=== PATIENT | female | born 1990 ===

== ENCOUNTER 2016-09-09 11:41 | Inpatient (IN) | payer OTHER ==
[2016-09-09] MEDS ORDERED: SODIUM CHLORIDE 0.9% FLUSH 10 ML ONE (11:56)
[2016-09-09] MEDS ORDERED: IV START KIT ONE (11:56)
[2016-09-09] MEDS ORDERED: OXYTOCIN IN LR 500 ML IV ONE ×2 (11:57→12:39)
[2016-09-09] MEDS ORDERED: LACTATED RINGERS 1,000 ML IV SCH (12:00)
[2016-09-09] MEDS ORDERED: OXYTOCIN 10 UNITS/ML VIAL ONE (12:38)
[2016-09-09] MEDS ORDERED: PUMP TUBING ONE (12:38)
[2016-09-09] MEDS ORDERED: MINERAL OIL 25 ML BOT ONE (12:38)
[2016-09-09] MEDS ORDERED: LIDOCAINE 1% (PRES FREE) 30 ML VIAL ONE (12:38)
[2016-09-09] MEDS ORDERED: LIDOCAINE Viscous 2% 15 ML UDCUP ONE (12:38)
[2016-09-09 12:42] LABS: HEMATOCRIT 37.4 % (37.0-47.0); HEMOGLOBIN 12.8 gm/l (12.0-16.0); MEAN CELL VOLUME 93.3 fl (81.0-99.0); MEAN CORPUSCULAR HEMOGLOBIN 31.9 pg (27.0-31.0); MEAN CORPUSCULAR HGB CONC 34.2 g/dl (33.0-37.0); RED CELL DISTRIBUTION WIDTH 13.5 % (11.5-14.5)
[2016-09-09] MEDS: OXYTOCIN IN LR 500 ML IV PRN ×4 (12:49→18:13)
[2016-09-09 13:07] VITALS: BMI 25.6
--- NOTE | 2016-09-09 14:24 | PCMAN ---
OB Admission Note - History : 2 Term: 1 : 0 Abortions (S&E): 0 Livin EDC:: 09/01/16 Gestational Age (weeks): 41 Days (#/7): 1 Admit Cervical Dilation:: 3 Admit Cervical Effacement (%):: 70 Admit Station:: -2 Admit Presentaton:: vertex Membrane Status: Intact Contractions: Yes Contraction Frequency:: occasional, none felt by pt. Heart Rate:: 125 Status:: Category 1, moderate variability, accels present, no decels Summary of Course:: Uncomplicated , GBS neg. Dated by LMP c/w 15 wk US. PMHx: h/o membranous VSD repaired at age 10 (cleared by Cards), Chlamydia, Eczema PSHx: VSD repair Meds: PNV SocHx: Denies tob, etoh or illicit drugs OBHx: 2014 40 wks, 7 lb 11 oz Flu vaccine 03/2016 Tdap 06/18/2016 - Labs Blood Type: O (+) positive Hct/Hgb:: 39.7/13.1 Rubella Status: Immune GBS Status: Negative Abnormal Labs: None Other Labs:: Ab neg HIV NR RPR NR HBSAg neg Quad normal 1hr 129 - Review of Systems Denies CP, SOB or PASCUAL. No RUQ, visual changes. No ctx, LOF or VB. Good movement. - Physical Exam General: Afebrile, No Acute Distress Psych/Mental Status: Mood/Affect Appropriate Neurological: Grossly Intact, Normal Speech Lungs: Clear to Auscultation Bilaterally, Normal Air Movement Cardiovascular: Regular Rate and Rhythm, Normal S1, Normal S2 Extremities: Full ROM Skin: Normal Color, Warm, Dry - Problems (1) Post-dates Status: Acute Code: O48.0Assessment/Plan: Admitted for postdates induction of labor SVE /-2 Pitocin started Will plan on AROM once in a regular ctx pattern GBS neg Desires natural unmedicated labor
--- NOTE | 2016-09-09 19:35 | PDOC36 ---
Provider Note Subject: MD Interval Note Note: Patient feeling more pressure. AROM was clear. Pit at 6. SVE 7/100/0 per RN. Afebrile, VSS. FHT: 130, moderate variability, accels present, no decels TOCO: Q2-3 mins A/P: 26 yo at 41 1/7 wks, IOL for post dates - expectant management
[2016-09-09] MEDS ORDERED: BENZOCAINE/MENTHOL 60 APPLIC/BOT TP PRN (20:06)
[2016-09-09] MEDS ORDERED: DOCUSATE SODIUM 100 MG CAPSULE PO PRN (20:06)
[2016-09-09] MEDS ORDERED: LANOLIN 50 APPLIC/7G TUBE TP PRN (20:06)
[2016-09-09] MEDS ORDERED: HYDROCODONE/ACETAMINOPHEN 5/325MG TABLET PO PRN (20:06)
--- NOTE | 2016-09-09 20:13 | PCMDEL ---
Delivery Note - Labor 1st stage (hr/min):: 4 hrs 34 mins 2nd stage (hr/min):: 9 mins 3rd stage (hr/min):: 4 mins Total (hr/min):: 4 hrs 43 mins Pushed (hr/min):: 5 mins - Delivery Delivery (Date): 09/09/16 Delivery (Time): 19:52 Infant Gender: Female Presentation: Cephalic Position: OA Umbilical Cord: 3 Vessel, Nuchal Cord Delayed Cord Clamping:: < 1-2 min 1 Minute Total: 9 5 Minute Total: 9 Placenta:: 19:56 EBL:: 300 mL Perineum:: perineal skid everette not repaired Suture:: none Anesthesia/Meds:: none Length ROM:: 4 hrs 43 mins Comments:: Precipitous of NB girl, apgars 9/9, delivered by it risk and assurance manager, Maria Elena Vo. I entered the room after delivery of the head. Double nuchal cord noted. delivered and placed on mom's abdomen. Cord clamped and cut after 1.5 min delay. Cord blood obtained. Placenta delivered and grossly normal. Perineal skid everette not repaired, not bleeding. Fundus firm with massage. Pitocin IV started. QBL 300 mL.
[2016-09-09] MEDS: IBUPROFEN 800 MG TABLET PO PRN (20:24)
[2016-09-10] MEDS: IBUPROFEN 800 MG TABLET PO PRN ×3 (06:09→20:01)
[2016-09-10 06:42] LABS: HEMATOCRIT 38.4 % (37.0-47.0); HEMOGLOBIN 12.8 gm/l (12.0-16.0)
--- NOTE | 2016-09-10 15:46 | PDOC44 ---
- Subjective Day: 1 Reports Pain Tolerable - Objective Temp Pulse Resp BP Pulse Ox 97.8 F 71 18 100/52 09/10/16 14:04 09/10/16 14:04 09/10/16 14:04 09/10/16 14:04 Lab Results 09/10/16 06:10 Hgb 12.8 Hct 38.4 Current Medications Generic Name Dose Route Start Last Admin Trade Name Freq PRN Reason Stop Dose Admin Acetaminophen/Hydrocodone Bitart 1 - 2 tab 09/09/16 20:06 [place] 5/325 PO Q4H PRN Pain (Moderate) Benzocaine/Menthol 1 applic 09/09/16 20:06 Dermoplast TP PRN PRN Patient Comfort Docusate Sodium 100 mg 09/09/16 20:06 09/10/16 12:31 Colace PO 100 mg DAILY PRN Administration Comfort Emollient Ointment 1 applic 09/09/16 20:06 Duq-I-Ekwlca TP PRN PRN sore nipples Ibuprofen 800 mg 09/09/16 20:06 09/10/16 12:31 Motrin PO 800 mg Q6H PRN Administration Pain (Mild) Sodium Chloride 10 ml 09/09/16 11:57 09/09/16 22:22 Normal Saline 10ml Flush IV 10 ml PRN PRN Administration IV Flush Sodium Chloride 10 ml 09/10/16 01:00 09/10/16 11:26 Normal Saline 10ml Flush IV Not Given Q8HR SHARI - Physical Exam General: Afebrile Psych/Mental Status: Mood/Affect Appropriate, Judgment/Insight Intact, Bonding Well Neurological: Oriented x 4 Lungs: Clear to Auscultation Bilaterally Cardiovascular: Regular Rate and Rhythm Fundus: Firm, Below Umbilicus - Problems:Assessment/Plan (1) (normal spontaneous vaginal delivery) Status: AcuteAssessment/Plan: Doing well Normal exam Continue routine care
[2016-09-11 09:45] VITALS: BP 100/54
[2016-09-11] MEDS: IBUPROFEN 800 MG TABLET PO PRN (10:22)
--- NOTE | 2016-09-11 11:51 | PDOC39B ---
Hospital Course: ADMIT DATE: 09/09/16 DISCHARGE DATE: 09/11/16 ADMISSION DIAGNOSES: IUP at 41w1d PROCEDURES: IOL for postdates HISTORY OF PRESENT ILLNESS: 26 year old G2 T1 L1 at 41 weeks 1 days presenting for postdates IOL HOSPITAL COURSE: The patient was admitted for IOL for postdates. Had Pitocin, progressed to complete and had uncomplicated . Pt had unremarkable PP course. By day of discharge the patient is ambulating, eating, voiding, and passing flatus without difficulty. Pain is controlled and lochia is appropriate. She is . - Physical Exam Vital Signs: Temp Pulse Resp BP Pulse Ox 97.7 F 74 16 100/54 09/11/16 09:41 09/11/16 09:41 09/11/16 09:41 09/11/16 09:41 General: Afebrile, No Acute Distress Psych/Mental Status: Mood/Affect Appropriate, Judgment/Insight Intact, Bonding Well Neurological: Grossly Intact, Alert, Normal Speech HEENT: Atraumatic, Mucous membr. moist/pink Lungs: Clear to Auscultation Bilaterally Cardiovascular: Regular Rate and Rhythm Breast: Soft Fundus: Firm, Midline, Below Umbilicus Skin: Normal Color, Warm, Dry, Intact, No Rash - Discharge Diagnosis (1) (normal spontaneous vaginal delivery) Status: AcuteAssessment/Plan: Doing well PPD#2 s/p after IOL for postdates DC home PP precautions Pelvic rest - Discharge Plan Condition: Good Disposition: Home Instruction Forms: Vaginal Discharge Instructions Additional Instructions: BABIES Clinic appointment for , 09/12/16, at 5pm. Bring baby ready to nurse. Come to the javascript front end [facility] of the [facility] to register Prescriptions: Docusate Sodium [COLACE 100 MG CAPSULE (F)] 100 mg PO DAILY PRN #60 PRN Reason: Comfort Benzocaine/Menthol [DERMOPLAST SPRAY (F)] 1 applic TP PRN PRN #1 PRN Reason: Patient Comfort Ibuprofen [IBUPROFEN 800 MG TABLET (F)] 800 mg PO Q6H PRN #60 PRN Reason: Pain (Mild) Lanolin [LANOLIN 7 G TUBE (F)] 1 applic TP PRN PRN #1 PRN Reason: Sore Nipples Follow-Up: VICTORINO Sebastian [Outside] [place] PA-C [Primary Care Provider] - Within 1-2 days (clinic to call pt to sched)
== END 2016-09-11 12:40 | disposition home or self-care (01) | DRG 775 ==
LOC: FBC 11:41
PROVIDERS: ADMIT Family Medicine; ATTEND Family Medicine
PROC: 10E0XZZ Delivery of Products of Conception, External Approach (ICD-10-PCS; principal; 2016-09-11)
PROC: 3E033VJ Introduction of Other Hormone into Peripheral Vein, Percutaneous Approach (ICD-10-PCS; 2016-09-11)
PROC: 10907ZC Drainage of Amniotic Fluid, Therapeutic from Products of Conception, Via Natural or Artificial Opening (ICD-10-PCS; 2016-09-11)
DX: O48.0 Post-term pregnancy (principal); O62.3 Precipitate labor; Z3A.41 41 weeks gestation of pregnancy; Z37.0 Single live birth